=== PATIENT | female | born 2000 | race Two or more races ===

== ENCOUNTER 2020-06-30 13:51 | Emergency (ER) | payer OTHER ==
[~2020-06-30] VITALS: Ht 152.4 cm; Wt 51.7 kg
[2020-06-30] MEDS ORDERED: MEFENAMIC ACID250 MG PO (20:40)
== END 2020-06-30 21:35 | disposition home or self-care (01) ==
LOC: EMR PED 13:51
DX: N94.4 Primary dysmenorrhea (principal); R11.11 Vomiting without nausea

== ENCOUNTER 2022-11-14 05:56 | Emergency (ER) | payer OTHER ==
[~2022-11-14] VITALS: Ht 152.4 cm; Wt 53.5 kg
[~2022-11-14 05:56] MED LIST: MEFENAMIC ACID250 MG PO
[2022-11-14] MEDS ORDERED: DUI500 PO (06:32)
== END 2022-11-14 06:47 | disposition home or self-care (01) ==
LOC: ER 05:56
DX: H92.01 Otalgia, right ear (principal); H66.91 Otitis media, unspecified, right ear